=== PATIENT | male | born 1960 | race Caucasian/White ===

== ENCOUNTER 2023-03-19 21:04 | Inpatient (IN) | payer OTHER ==
[~2023-03-19] VITALS: Ht 175.3 cm; Wt 59.0 kg
[2023-03-19 21:25] VITALS: BP_SYST 120; PULSE 112; RESP 16; TEMP 99.1; O2SAT 98
[2023-03-19] MEDS ORDERED: VANCOMYCIN HCL 1,000 MG in NS 250 ML IV ONE (22:45)
[2023-03-19] MEDS ORDERED: PIPERACILLIN/TAZO 3.375 GM in NS 50 ML IV ONE (22:45)
[2023-03-19] MEDS ORDERED: NACL 0.9% 2,000 ML IV ONE (22:45)
[2023-03-19] MEDS ORDERED: VANCOMYCIN HCL 1000 MG/VIAL IV ONE (22:51)
[2023-03-19] MEDS ORDERED: PIPERACILLIN/TAZOBACTAM 3.375 GM/VIAL (ZOSYN) IV ONE (22:53)
[2023-03-19 23:09] LABS: ERYTHROCYTE SEDIMENTATION RATE 11 MM/HR (0-15)
[2023-03-19 23:13] LABS: BASOPHILS % (AUTO) 0.3 % (0.0-2.0); EOSINOPHILS % (AUTO) 0.2 % (0.0-4.0); HEMATOCRIT 37.5 % (36-54); HEMOGLOBIN 12.7 g/dL (14.0-18.0); LYMPHOCYTES % (AUTO) 8.6 % (20.5-51.5); MEAN CORPUSCULAR HEMOGLOBIN 31 pg (27-31); MEAN CORPUSCULAR HGB CONC 34 % (32-36); MEAN CORPUSCULAR VOLUME 92 fL (79.0-98.0); MONOCYTES # (AUTO) 0.7 K/uL (0.0-1.0); MONOCYTES % (AUTO) 6.3 % (1.7-9.3); NEUTROPHILS % (AUTO) 84.6 % (40.0-70.0); PLATELET COUNT (AUTO) 194 K/uL (130-430); RED BLOOD CELL COUNT(AUTO) 4.08 MIL/uL (4.2-6.2); RED CELL DISTRIBUTION WIDTH 12.6 % (9.0-15.0); WHITE BLOOD COUNT (AUTO) 11.8 K/uL (4.8-10.8)
[2023-03-19 23:57] LABS: CALCIUM 9.2 mg/dL (8.4-11.0); CREATININE 1.18 mg/dL (0.55-1.30); POTASSIUM 4.8 mmol/L (3.5-5.1)
[2023-03-20] MEDS ORDERED: INSULIN REGULAR, HUMAN 10 UNITS/0.1 ML, 3 ML VIAL IVP ONE (00:30)
[2023-03-20] MEDS ORDERED: AMLO10TA88 PO (00:35)
[2023-03-20] MEDS ORDERED: SITA100T11 PO (00:35)
[2023-03-20] MEDS ORDERED: LISI10TA29 PO (00:35)
[2023-03-20] MEDS ORDERED: ATOR40TA68 PO (00:35)
[2023-03-20] MEDS ORDERED: HUM10VIA SUBCUT (00:35)
[2023-03-20] MEDS ORDERED: DEXTROSE 50% JECT 50 ML DISP.SYRIN IVP PRN (11:00)
[2023-03-20] MEDS ORDERED: GLUCOSE (DEXTROSE) ORAL GEL -Adults PO PRN (11:00)
[2023-03-20] MEDS: NACL 0.9% 1,000 ML IV SCH (11:48)
[2023-03-20] MEDS ORDERED: CEFEPIME 1 GM/VIAL (MAXIPIME) ONE (11:57)
[2023-03-20] MEDS ORDERED: CEFEPIME 1 GM in D5W 50 ML IV ONE (12:00)
[2023-03-20] MEDS: INSULIN REGULAR, HUMAN 100 UNITS/ML, 3 ML VIAL (humuLIN R) SUBCUT PRN ×3 (12:11→21:48)
[2023-03-20] MEDS ORDERED: INSULIN REGULAR, HUMAN 10 UNITS/0.1 ML, 3 ML VIAL ONE (12:12)
[2023-03-20] MEDS ORDERED: VANCOMYCIN HCL 500 MG in NS 100 ML IV ONE (13:00)
[2023-03-20] MEDS ORDERED: VANCOMYCIN HCL 500 MG/VIAL IV ONE (13:28)
[2023-03-20 14:00] VITALS: BP_SYST 98; PULSE 95; RESP 16; TEMP 98.8; O2SAT 95
[2023-03-20 14:31] VITALS: BP_SYST 98; PULSE 95; RESP 16; TEMP 98.8; O2SAT 95
[2023-03-20] MEDS: CEFEPIME 1 GM in D5W 50 ML IV SCH (15:10)
[2023-03-20 20:00] VITALS: BP_SYST 101; PULSE 100; RESP 20; TEMP 99; O2SAT 94
[2023-03-20] MEDS: ATORVASTATIN 20 MG TABLET PO SCH (21:36)
[2023-03-20] MEDS: VANCOMYCIN HCL 500 MG in NS 100 ML IV SCH (21:49)
[2023-03-20] MEDS: INSULIN GLARGINE 100 UNITS/ML, 10 ML VIAL SUBCUT SCH (22:00)
[2023-03-20 22:36] LABS: BASOPHILS % (AUTO) 0.2 % (0.0-2.0); EOSINOPHILS % (AUTO) 0.4 % (0.0-4.0); HEMATOCRIT 32.2 % (36-54); LYMPHOCYTES # (AUTO) 1.1 K/uL (1.0-5.5); MEAN CORPUSCULAR HEMOGLOBIN 31 pg (27-31); MEAN CORPUSCULAR HGB CONC 34 % (32-36); MEAN CORPUSCULAR VOLUME 91 fL (79.0-98.0); MONOCYTES # (AUTO) 0.6 K/uL (0.0-1.0); MONOCYTES % (AUTO) 6.9 % (1.7-9.3); NEUTROPHILS # (AUTO) 7.4 K/uL (1.8-7.7); NEUTROPHILS % (AUTO) 80.5 % (40.0-70.0); PLATELET COUNT (AUTO) 179 K/uL (130-430); RED BLOOD CELL COUNT(AUTO) 3.55 MIL/uL (4.2-6.2); RED CELL DISTRIBUTION WIDTH 12.3 % (9.0-15.0); WHITE BLOOD COUNT (AUTO) 9.2 K/uL (4.8-10.8)
[2023-03-20 22:48] LABS: ALBUMIN 2.4 g/dL (3.4-4.8); CALCIUM 8.6 mg/dL (8.4-11.0); CREATININE 0.99 mg/dL (0.55-1.30); POTASSIUM 4.3 mmol/L (3.5-5.1); TOTAL BILIRUBIN 0.6 mg/dL (0.0-1.0); TOTAL PROTEIN, SERUM 6.1 g/dL (6.4-8.3)
[2023-03-21] VITALS: BP_SYST 110; PULSE 98; RESP 20; TEMP 98.7; O2SAT 95
[2023-03-21] MEDS: NACL 0.9% 1,000 ML IV SCH ×3 (02:31→17:00)
[2023-03-21] MEDS: INSULIN REGULAR, HUMAN 100 UNITS/ML, 3 ML VIAL (humuLIN R) SUBCUT PRN ×4 (06:36→21:27)
[2023-03-21 06:42] LABS: BASOPHILS % (AUTO) 0.3 % (0.0-2.0); EOSINOPHILS # (AUTO) 0.1 K/uL (0.0-0.4); EOSINOPHILS % (AUTO) 0.6 % (0.0-4.0); HEMATOCRIT 33.7 % (36-54); HEMOGLOBIN 11.5 g/dL (14.0-18.0); LYMPHOCYTES # (AUTO) 1.1 K/uL (1.0-5.5); LYMPHOCYTES % (AUTO) 13.7 % (20.5-51.5); MEAN CORPUSCULAR HEMOGLOBIN 31 pg (27-31); MEAN CORPUSCULAR HGB CONC 34 % (32-36); MEAN CORPUSCULAR VOLUME 91 fL (79.0-98.0); MONOCYTES # (AUTO) 0.5 K/uL (0.0-1.0); MONOCYTES % (AUTO) 6.2 % (1.7-9.3); NEUTROPHILS # (AUTO) 6.6 K/uL (1.8-7.7); NEUTROPHILS % (AUTO) 79.2 % (40.0-70.0); PLATELET COUNT (AUTO) 173 K/uL (130-430); RED CELL DISTRIBUTION WIDTH 12.6 % (9.0-15.0); WHITE BLOOD COUNT (AUTO) 8.3 K/uL (4.8-10.8)
[2023-03-21 06:51] LABS: ALBUMIN 2.4 g/dL (3.4-4.8); CALCIUM 8.8 mg/dL (8.4-11.0); CREATININE 0.89 mg/dL (0.55-1.30); POTASSIUM 4.4 mmol/L (3.5-5.1); TOTAL BILIRUBIN 0.6 mg/dL (0.0-1.0); TOTAL PROTEIN, SERUM 6.3 g/dL (6.4-8.3)
[2023-03-21] MEDS: VANCOMYCIN HCL 500 MG in NS 100 ML IV SCH ×2 (08:51→21:16)
[2023-03-21] MEDS: INSULIN GLARGINE 100 UNITS/ML, 10 ML VIAL SUBCUT SCH (08:53)
[2023-03-21 11:03] VITALS: BP_SYST 115; PULSE 100; RESP 16; TEMP 99.7; O2SAT 97
[2023-03-21] MEDS: CEFEPIME 1 GM in D5W 50 ML IV SCH (14:57)
[2023-03-21 17:14] VITALS: BP_SYST 116; PULSE 100; RESP 16; TEMP 99.7; O2SAT 97
[2023-03-21 20:00] VITALS: BP_SYST 111; PULSE 105; RESP 20; TEMP 98.6; O2SAT 97
[2023-03-21] MEDS: ATORVASTATIN 20 MG TABLET PO SCH (21:17)
[2023-03-21] MEDS ORDERED: CALCIUM CARBONATE 500 MG/ TAB.CHEW PO PRN (21:30)
[2023-03-21] MEDS: PANTOPRAZOLE SODIUM 40 MG TAB PO SCH (22:20)
[2023-03-22] MEDS ORDERED: guaiFENesin/DEXTROMETHORPHAN 10 ML UDC PO PRN
[2023-03-22] MEDS: ZOLPIDEM TARTRATE 5 MG TABLET PO PRN ×2 (00:56→22:02)
[2023-03-22] MEDS: NACL 0.9% 1,000 ML IV SCH ×3 (01:13→23:30)
[2023-03-22 01:14] VITALS: BP_SYST 117; BP_SYST 18; PULSE 119; RESP 18; TEMP 97.6; O2SAT 94
[2023-03-22] MEDS: INSULIN REGULAR, HUMAN 100 UNITS/ML, 3 ML VIAL (humuLIN R) SUBCUT PRN ×3 (06:22→18:03)
[2023-03-22 08:00] VITALS: O2SAT 92
[2023-03-22] MEDS ORDERED: INSULIN GLARGINE 100 UNITS/ML, 10 ML VIAL SUBCUT SCH (09:00)
[2023-03-22 09:46] LABS: BASOPHILS % (AUTO) 0.1 % (0.0-2.0); HEMOGLOBIN 12.3 g/dL (14.0-18.0); LYMPHOCYTES # (AUTO) 0.4 K/uL (1.0-5.5); LYMPHOCYTES % (AUTO) 2.5 % (20.5-51.5); MEAN CORPUSCULAR HEMOGLOBIN 31 pg (27-31); MEAN CORPUSCULAR HGB CONC 33 % (32-36); MEAN CORPUSCULAR VOLUME 92 fL (79.0-98.0); MONOCYTES # (AUTO) 0.8 K/uL (0.0-1.0); MONOCYTES % (AUTO) 5.4 % (1.7-9.3); NEUTROPHILS # (AUTO) 14.4 K/uL (1.8-7.7); PLATELET COUNT (AUTO) 218 K/uL (130-430); RED BLOOD CELL COUNT(AUTO) 4.03 MIL/uL (4.2-6.2); RED CELL DISTRIBUTION WIDTH 12.6 % (9.0-15.0); WHITE BLOOD COUNT (AUTO) 15.7 K/uL (4.8-10.8)
[2023-03-22 10:06] LABS: ALBUMIN 2.9 g/dL (3.4-4.8); CALCIUM 9.6 mg/dL (8.4-11.0); CREATININE 1.7 mg/dL (0.55-1.30); POTASSIUM 5.2 mmol/L (3.5-5.1); TOTAL BILIRUBIN 1.4 mg/dL (0.0-1.0); TOTAL PROTEIN, SERUM 7.3 g/dL (6.4-8.3)
[2023-03-22] MEDS: PANTOPRAZOLE SODIUM 40 MG TAB PO SCH (10:22)
[2023-03-22] MEDS: VANCOMYCIN HCL 500 MG in NS 100 ML IV SCH (10:48)
[2023-03-22 12:00] VITALS: BP_SYST 105; PULSE 106; RESP 19; TEMP 98.9; O2SAT 99
[2023-03-22 13:16] LABS: INR 1.2 (0.80-1.20); PROTHROMBIN TIME 12.4 SECS (9.5-12.5)
[2023-03-22] MEDS ORDERED: NS 500 ML IV ONE (14:00)
[2023-03-22] MEDS ORDERED: INSULIN GLARGINE 100 UNITS/ML, 10 ML VIAL SUBCUT ONE (14:00)
[2023-03-22] MEDS: CEFEPIME 1 GM in D5W 50 ML IV SCH (14:19)
[2023-03-22 16:00] VITALS: BP_SYST 93; PULSE 95; RESP 20; TEMP 98.3; O2SAT 93
[2023-03-22 20:00] VITALS: BP_SYST 109; PULSE 102; RESP 20; TEMP 98.3; O2SAT 97; O2SAT 98
[2023-03-22] MEDS: ATORVASTATIN 20 MG TABLET PO SCH (22:02)
[2023-03-22] MEDS: VANCOMYCIN HCL 750 MG in NS 250 ML IV SCH (22:03)
[2023-03-22] MEDS: PIPERACILLIN/TAZO 3.375/DEX-IS 50 ML IV SCH (23:29)
[2023-03-23] VITALS: BP_SYST 109; PULSE 102; RESP 21; TEMP 98.1; O2SAT 98
[2023-03-23] MEDS: PIPERACILLIN/TAZO 3.375/DEX-IS 50 ML IV SCH ×2 (02:00→08:00)
[2023-03-23 05:45] LABS: BASOPHILS % (AUTO) 0.1 % (0.0-2.0); EOSINOPHILS % (AUTO) 0.1 % (0.0-4.0); HEMATOCRIT 32.6 % (36-54); HEMOGLOBIN 11.1 g/dL (14.0-18.0); LYMPHOCYTES # (AUTO) 1.3 K/uL (1.0-5.5); LYMPHOCYTES % (AUTO) 9.4 % (20.5-51.5); MEAN CORPUSCULAR HEMOGLOBIN 31 pg (27-31); MEAN CORPUSCULAR HGB CONC 34 % (32-36); MEAN CORPUSCULAR VOLUME 90 fL (79.0-98.0); MONOCYTES # (AUTO) 0.9 K/uL (0.0-1.0); MONOCYTES % (AUTO) 6.6 % (1.7-9.3); NEUTROPHILS # (AUTO) 11.3 K/uL (1.8-7.7); NEUTROPHILS % (AUTO) 83.8 % (40.0-70.0); PLATELET COUNT (AUTO) 180 K/uL (130-430); RED BLOOD CELL COUNT(AUTO) 3.63 MIL/uL (4.2-6.2); RED CELL DISTRIBUTION WIDTH 12.9 % (9.0-15.0); WHITE BLOOD COUNT (AUTO) 13.5 K/uL (4.8-10.8)
[2023-03-23 05:58] LABS: ALBUMIN 2.5 g/dL (3.4-4.8); CALCIUM 9.1 mg/dL (8.4-11.0); CREATININE 1.31 mg/dL (0.55-1.30); TOTAL BILIRUBIN 0.8 mg/dL (0.0-1.0); TOTAL PROTEIN, SERUM 6.2 g/dL (6.4-8.3)
[2023-03-23 08:00] VITALS: BP_SYST 98; PULSE 88; RESP 25; TEMP 99.1; O2SAT 94; O2SAT 97
[2023-03-23] MEDS: NACL 0.9% 1,000 ML IV SCH ×2 (09:00→22:16)
[2023-03-23] MEDS: VANCOMYCIN HCL 750 MG in NS 250 ML IV SCH ×2 (09:00→22:17)
[2023-03-23] MEDS: PANTOPRAZOLE SODIUM 40 MG TAB PO SCH (09:56)
[2023-03-23] MEDS: INSULIN GLARGINE 100 UNITS/ML, 10 ML VIAL SUBCUT SCH (09:58)
[2023-03-23 12:00] VITALS: BP_SYST 108; PULSE 72; RESP 22; TEMP 99; O2SAT 97
[2023-03-23 13:20] LABS: BILIRUBIN,URINE 1+ (NEGATIVE); BLOOD, URINE NEGATIVE (NEGATIVE); CLARITY/URINE CLEAR (CLEAR); COLOR,URINE YELLOW (YELLOW); GLUCOSE,URINE TRACE (NEGATIVE); KETONES,URINE TRACE (NEGATIVE); LEUKOCYTE ESTERASE ,URINE NEGATIVE (NEGATIVE); NITRITE, URINE NEGATIVE (NEGATIVE); PH,URINE 5.5 (5.0-8.0); PROTEIN URINE 1+ (NEGATIVE)
[2023-03-23 13:39] LABS: BARBITURATE, URINE NEGATIVE (NEG <=200); BENZODIAZEPINE, URINE NEGATIVE (NEG <=150); CANNABINOID, URINE NEGATIVE (NEG <=50); COCAINE, URINE NEGATIVE (NEG <=150); METHAMPHETAMINES SCREEN,URINE NEGATIVE (NEG <=500); OPIATE, URINE NEGATIVE (NEG <=100); PHENCYCLIDINE SCREEN,URINE NEGATIVE (NEG <=25); UR TRICYCLIC ANTIDEPRESSANTS NEGATIVE (NEG <=300); URINE AMPHETAMINE NEGATIVE (NEG <=500); URINE METHADONE NEGATIVE (NEG <=200); URINE OXYCODONE SCREEN NEGATIVE (NEG <=100)
[2023-03-23 13:49] LABS: BACTERIA,URINE RARE /HPF (None Seen); HYALINE CASTS, URINE 0-2 /LPF (None Seen); RBC,URINE 0-3 /HPF (0-3); WBC,URINE 0-3 /HPF (0-3)
[2023-03-23 16:00] VITALS: BP_SYST 107; PULSE 78; RESP 18; TEMP 97.9; O2SAT 98
[2023-03-23] MEDS: INSULIN REGULAR, HUMAN 100 UNITS/ML, 3 ML VIAL (humuLIN R) SUBCUT PRN (18:21)
[2023-03-23 19:00] VITALS: O2SAT 95
[2023-03-23 20:00] VITALS: BP_SYST 99; PULSE 87; RESP 18; TEMP 99; O2SAT 95
[2023-03-23] MEDS: ATORVASTATIN 20 MG TABLET PO SCH (22:17)
[2023-03-24] VITALS: BP_SYST 104; PULSE 83; RESP 18; TEMP 97.9; O2SAT 98
[2023-03-24 07:35] LABS: BASOPHILS % (AUTO) 0.2 % (0.0-2.0); EOSINOPHILS # (AUTO) 0.1 K/uL (0.0-0.4); EOSINOPHILS % (AUTO) 0.9 % (0.0-4.0); HEMATOCRIT 34.5 % (36-54); HEMOGLOBIN 11.7 g/dL (14.0-18.0); LYMPHOCYTES % (AUTO) 9.1 % (20.5-51.5); MEAN CORPUSCULAR HEMOGLOBIN 31 pg (27-31); MEAN CORPUSCULAR HGB CONC 34 % (32-36); MEAN CORPUSCULAR VOLUME 91 fL (79.0-98.0); MONOCYTES # (AUTO) 0.7 K/uL (0.0-1.0); MONOCYTES % (AUTO) 6.7 % (1.7-9.3); NEUTROPHILS # (AUTO) 8.9 K/uL (1.8-7.7); NEUTROPHILS % (AUTO) 83.1 % (40.0-70.0); PLATELET COUNT (AUTO) 170 K/uL (130-430); RED BLOOD CELL COUNT(AUTO) 3.79 MIL/uL (4.2-6.2); RED CELL DISTRIBUTION WIDTH 12.9 % (9.0-15.0); WHITE BLOOD COUNT (AUTO) 10.6 K/uL (4.8-10.8)
[2023-03-24 07:46] LABS: ALBUMIN 2.4 g/dL (3.4-4.8); CALCIUM 8.8 mg/dL (8.4-11.0); CREATININE 1.06 mg/dL (0.55-1.30); POTASSIUM 4.9 mmol/L (3.5-5.1); TOTAL BILIRUBIN 0.8 mg/dL (0.0-1.0); TOTAL PROTEIN, SERUM 6.3 g/dL (6.4-8.3)
[2023-03-24] MEDS: INSULIN GLARGINE 100 UNITS/ML, 10 ML VIAL SUBCUT SCH (09:00)
[2023-03-24] MEDS: PANTOPRAZOLE SODIUM 40 MG TAB PO SCH (09:00)
[2023-03-24] MEDS: VANCOMYCIN HCL 750 MG in NS 250 ML IV SCH (09:00)
[2023-03-24 11:05] VITALS: O2SAT 96
[2023-03-24 11:49] VITALS: BP_SYST 108; PULSE 88; RESP 16; TEMP 98; O2SAT 96
[2023-03-24 11:50] VITALS: BP_SYST 108; PULSE 88; RESP 18; TEMP 98; O2SAT 96
== END 2023-03-24 12:31 | disposition left against medical advice (07) | DRG 299 ==
LOC: SED 21:04 → SMU 03-20 01:24
PROVIDERS: ADMIT Specialist; ATTEND Specialist
PROC: 02HV33Z Insertion of Infusion Device into Superior Vena Cava, Percutaneous Approach (ICD-10-PCS; 2023-03-21)
PROC: B548ZZA Ultrasonography of Superior Vena Cava, Guidance (ICD-10-PCS; 2023-03-21)
PROC: 02HV33Z Insertion of Infusion Device into Superior Vena Cava, Percutaneous Approach (ICD-10-PCS; principal; 2023-03-22)
PROC: B548ZZA Ultrasonography of Superior Vena Cava, Guidance (ICD-10-PCS; 2023-03-22)
DX: E11.52 Type 2 diabetes mellitus with diabetic peripheral angiopathy with gangrene (principal); E43 Unspecified severe protein-calorie malnutrition; E87.1 Hypo-osmolality and hyponatremia; I96 Gangrene, not elsewhere classified; Z68.1 Body mass index [BMI] 19.9 or less, adult; N17.9 Acute kidney failure, unspecified; K81.0 Acute cholecystitis; I10 Essential (primary) hypertension; E80.6 Other disorders of bilirubin metabolism; R74.01 Elevation of levels of liver transaminase levels; E78.5 Hyperlipidemia, unspecified; E11.65 Type 2 diabetes mellitus with hyperglycemia; Z20.822 Contact with and (suspected) exposure to COVID-19; Z79.4 Long term (current) use of insulin
CPT/HCPCS: 36415; 71045; 76705; 78315; 80048; 80053; 80202; 80307; 81000; 81001; 81015; 82948; 82962; 83037; 83605; 85025; 85610-TC; 85651-TC; 85730-TC; 87040; 87070-TC; 87075-TC; 87186-TC; 93923; 96365; 96367; 97110-GP; 97116-GP; 97530-GP; 99285; A9503; G0482; J0692; J1815; J1956; J2543; J3370; J7050; J7060